=== PATIENT | male | born 1935 | race Two or more races ===

== ENCOUNTER 2017-06-17 14:19 | Inpatient (IN) | payer OTHER ==
--- NOTE | 2017-06-17 15:48 | EDPHY ---
H & P Time Seen by Provider: 06/17/17 15:33 HPI/ROS: CHIEF COMPLAINT: Diarrhea, weakness HISTORY OF PRESENT ILLNESS: The patient is an 81-year-old male with a history of progressive super nuclear palsy. The patient is a resident in assisted living. Some residence at the care facility developed diarrhea over the past week. He developed diarrhea on Monday and Monday. His diarrhea has resolved. However, the patient's daughter states that he has had increased weakness since Monday. Since the beginning of this week the patient has had 5 falls at night. Patient normally uses a walker but rarely if ever falls. His movement is complicated by his underlying condition. Patient denies any injury from the fall. He has no headache or neck pain. Patient has had a mild nonproductive cough for the past couple of weeks. Patient denies abdominal pain. The daughter also states that early in the week he had a episode of urinary incontinence. This is not typical. REVIEW OF SYSTEMS: My complete review of systems is negative except as mentioned in the HPI. Past Medical/Surgical History: Includes a progressive supranuclear palsy. The patient's daughter states that he has never been in the hospital. Past surgical history: Negative Social history: The patient lives in assisted living. Smoking Status: Never smoked Physical Exam: Is 94/69, 84, 20, 93% on room air, 37 GENERAL: No acute distress, alert. HEENT: Eyes normal to inspection, normal pharynx, no signs of dehydration. NECK: No thyromegaly, no lymphadenopathy, supple. No C-spine tenderness palpation RESPIRATORY: Clear to auscultation bilaterally, no rales, rhonchi or wheezing. CVS: Regular rate and rhythm, no rubs, murmurs, or gallops. ABDOMEN: Soft, nontender, nondistended, no organomegaly. BACK: Normal to inspection, no CVA tenderness. SKIN: Normal color, no rash, warm, dry. No pallor. EXTREMITIES: No pedal edema, no calf tenderness, no Homans sign or cords, no joint swelling. NEURO/PSYCH: Alert and oriented x3, normal mood and flat affect, normal motor sensory exam. Slightly slow movement. No obvious cranial nerve deficit. Constitutional: Initial Vital Signs Temperature (C) 37 C 06/17/17 14:53 Heart Rate 84 06/17/17 14:53 Respiratory Rate 20 06/17/17 14:53 Blood Pressure 94/69 L 06/17/17 14:53 O2 Sat (%) 93 06/17/17 14:53 O2 Delivery Mode Room Air Allergies/Adverse Reactions: No Known Allergies Allergy (Unverified 06/17/17 14:51) Home Medications: Medication Instructions Recorded Aspirin 06/17/17 Dutasteride 06/17/17 Losartan Potassium 06/17/17 Memantine HCl 06/17/17 Medical Decision Making - Diagnostics Imaging Results: Imaging Impressions Chest X-Ray 06/17/17 15:49 Impression: 1. No pneumonia. 2. Borderline cardiomegaly without pulmonary vascular plethora. 3. Minimal costophrenic gutter blunting, discussed above. Head CT 06/17/17 15:49 Impression: Elderly brain with atrophy and probable white matter small vessel disease. Negative for hemorrhage or other intracranial acute abnormality. Results called and discussed with Mackenzie Ayoub M.D. on June 17, 2017 at 1621 hours. ED Course/Re-evaluation: In the emergency department I discussed possible etiologies with the patient and his daughter. I answered all her questions. IV was placed. Laboratory studies were obtained. Due the patient's recent fall and head CT was ordered. Patient has had ongoing cough and a chest x-ray was ordered. EKG: Atrial fibrillation at 119. Normal axis. No ST or T-wave abnormalities. I reviewed the patient's laboratory studies. He had markedly low white count of 2. He was mildly anemic. Patient's platelets were low at 108. His chemistry panel was notable for mildly elevated creatinine 1.4. Troponin was negative. Head CT: Please refer the dictated report by Dr. Dubon. Atrophy. No acute disease noted. No subdural hematoma. Chest x-ray: Mild cardiomegaly. No acute disease. Patient's flu screen came back positive. I discussed the results with the patient and his daughter. I answered all her questions. We are awaiting urine studies. I discussed the case with Dr.Conor Kapoor who was on-call for the hospitalist service. He will admit the patient for further care. Differential Diagnosis: My differential includes but is not limited to pneumonia, bronchitis, influenza , electrolyte abnormality, sugar abnormality, subarachnoid hemorrhage, subdural hematoma, epidural hematoma, CVA, dehydration - Data Points Laboratory Results: Laboratory Results 06/17/17 15:39 06/17/17 15:39 06/17/17 06/17/17 06/17/17 16:53 15:39 15:39 WBC 2.95 10^3/uL L 10^3/uL (3.80-9.50) RBC 3.99 10^6/uL L 10^6/uL (4.40-6.38) Hgb 13.8 g/dL g/dL (13.7-17.5) Hct 37.5 % L % (40.0-51.0) MCV 94.0 fL fL (81.5-99.8) MCH 34.6 pg H pg (27.9-34.1) MCHC 36.8 g/dL H g/dL (32.4-36.7) RDW 13.5 % % (11.5-15.2) Plt Count 108 10^3/uL L 10^3/uL (150-400) MPV 9.1 fL fL (8.7-11.7) Neut % (Auto) Not Reported Lymph % (Auto) Not Reported [place] % (Auto) Not Reported Eos % (Auto) Not Reported Baso % (Auto) Not Reported Nucleat RBC Rel Count 0.0 % % (0.0-0.2) Absolute Neuts (auto) Not Reported Absolute Lymphs (auto) Not Reported Absolute Monos (auto) Not Reported Absolute Eos (auto) Not Reported Absolute Basos (auto) Not Reported Absolute Nucleated RBC 0.00 10^3/uL 10^3/uL (0-0.01) Immature Gran % Not Reported Seg Neutrophils % 44 % % Band Neutrophils % 3 % % Lymphocytes % 35 % % Monocytes % 17 % % Eosinophils % 1 % % Immature Gran # Not Reported Absolute Seg Neuts 1.30 10^/uL L 10^/uL (1.70-6.50) Absolute Band Neuts 0.09 10^3/uL 10^3/uL (0.00-0.70) Absolute Lymphocytes 1.03 10^3/uL 10^3/uL (1.00-3.00) Absolute Monocytes 0.50 10^3/uL 10^3/uL (0.30-0.80) Absolute Eosinophils 0.03 10^3/uL 10^3/uL (0.03-0.40) RBC/WBC/PLT Morphology NORMAL (NORMAL) Atypical Lymphocytes 1+ H Platelet Estimate DECREASED L (ADEQ) Sodium 139 mEq/L mEq/L (134-144) Potassium 4.1 mEq/L mEq/L (3.5-5.2) Chloride 104 mEq/L mEq/L (97-110) Carbon Dioxide 22 mEq/l mEq/l (22-31) Anion Gap 13 mEq/L mEq/L (8-16) BUN 35 mg/dL H mg/dL (7-23) Creatinine 1.4 mg/dL H mg/dL (0.7-1.3) Estimated GFR 49 Glucose 100 mg/dL mg/dL (70-100) Calcium 8.8 mg/dL mg/dL (8.5-10.4) Troponin I 0.018 ng/mL ng/mL (0.000-0.034) NT-Pro-B Natriuret Pep 387 pg/mL pg/mL (0-450) Nasal Influenza A PCR NEGATIVE FOR FLU A (NEGATIVE) Nasal Influenza B PCR FLU B DETECTED (NEGATIVE) Medications Given: Discontinued Medications Sodium Chloride (Ns) 500 mls @ 1,000 mls/hr IV EDNOW ONE PRN Reason: Protocol Stop: 06/17/17 16:18 Last Admin: 06/17/17 16:19 Dose: 500 mls Departure - Departure Disposition: [facility] In[facility] Acute Clinical Impression: Weakness, Influenza B, Thrombocytopenia Leukopenia Qualifiers: Leukopenia type: other Qualified Code(s): D72.818 - Other decreased white blood cell count Condition: Good
[2017-06-17] MEDS ORDERED: NS 500 ML IV ONE (15:49)
[2017-06-17 15:55] LABS: ADD MORPH? NO; FRAGMENT RBC FLAG 0 (0-99); HEMATOCRIT 37.5 % (40.0-51.0); HEMOGLOBIN 13.8 g/dL (13.7-17.5); LEFT SHIFT FLG 0 (0-99); LIPEMIA HEMOLYSIS FLAG 90 (0-99); MEAN CELL HEMOGLOBIN 34.6 pg (27.9-34.1); MEAN CELL HEMOGLOBIN CONCENTR. 36.8 g/dL (32.4-36.7); MEAN PLATELET VOLUME 9.1 fL (8.7-11.7); PLATELET CLUMPS FLAG 10 (0-99); PLATELET COUNT 108 10^3/uL (150-400); RED BLOOD CELL COUNT 3.99 10^6/uL (4.40-6.38); RED CELL DISTRIBUTION WIDTH 13.5 % (11.5-15.2)
[2017-06-17 16:04] LABS: ANION GAP 13 mEq/L (8-16); CALCIUM 8.8 mg/dL (8.5-10.4); CARBON DIOXIDE 22 mEq/l (22-31); CHLORIDE 104 mEq/L (97-110); CREATININE 1.4 mg/dL (0.7-1.3); GLOMERULAR FILTRATION RATE 49; GLUCOSE 100 mg/dL (70-100); POTASSIUM 4.1 mEq/L (3.5-5.2); SODIUM 139 mEq/L (134-144)
[2017-06-17 16:08] LABS: ADD DIFF? YES; ADD SCAN? NO; ATYPICAL LYMPHOCYTE FLAG 190 (0-99)
[2017-06-17 16:16] LABS: TROPONIN I 0.018 ng/mL (0.000-0.034)
--- NOTE | 2017-06-17 16:28 | CPEKG ---
Heart Rate: 119 RR Interval: 504 QRSD Interval: 92 QT Interval: 320 QTC Interval: 451 QRS [place]: -6 T Wave [place]: 66 EKG Severity - ABNORMAL ECG - EKG Impression: ATRIAL FIBRILLATION, V-RATE 63-169 EKG Impression: LOW VOLTAGE IN FRONTAL LEADS Electronically Signed By: Mackenzie Ayoub 17-Jun-2017 21:34:35
[2017-06-17 16:43] LABS: PLATELET ESTIMATE DECREASED (ADEQ)
[2017-06-17 18:04] LABS: BACTERIA TRACE /hpf (NONE SEEN); COLOR YELLOW; LEUKOCYTE ESTERASE,URINE NEGATIVE (NEGATIVE); MUCUS 4+ /lpf (NONE-1+); NITRITE,URINE NEGATIVE (NEGATIVE)
[2017-06-17] MEDS ORDERED: PROMETHAZINE HCL 25 MG/ML INJ IVP PRN (20:26)
[2017-06-17] MEDS ORDERED: IPRATROPIUM/ALBUTEROL 3 ML DEYVIAL IH PRN (20:36)
[2017-06-17] MEDS: OSELTAMIVIR PHOSPHATE 75 MG CAP PO SCH (21:15)
--- NOTE | 2017-06-17 21:24 | GHP ---
[f rep st] HISTORY AND PHYSICAL DATE OF ADMISSION: 06/17/2017 CHIEF COMPLAINT: Fatigue and progressive weakness. HISTORY OF PRESENT ILLNESS: The patient is a very pleasant 81-year-old gentleman with a past medical history of progressive supranuclear palsy and hypertension, who had been progressively getting weak over the past several days. He did have an associated cough noted as well, as well as some diarrhea earlier in the week. In the emergency room, His PCR flu testing was positive for influenza B. His w orkup was also notable for pancytopenia and creatinine elevation of 1.4. PAST MEDICAL HISTORY: 1. Progressive supranuclear palsy. 2. Hypertension. 3. BPH. PAST SURGICAL HISTORY: None. MEDICATIONS: His medication list is taken from his ambulatory order list. 1. Aspirin 81 mg daily. 2. Dutasteride 0.5 mg daily. 3. Cozaar 25 mg daily. 4. Namenda 10 mg twice a day. ALLERGIES: No known drug allergies. SOCIAL HISTORY: Patient currently lives in assisted living. He is a nonsmoker. He has 1 son. FAMILY HISTORY: Unknown. REVIEW OF SYSTEMS: CONSTITUTIONAL: Positive for subjective fever and chills. ENT: Positive for re cent cough. CARDIOVASCULAR: No complaints of chest pains, palpitations, or syncopal episodes. RESP IRATORY: No subjective shortness of breath, but cough noted. GI: No nausea or vomiting. No focal abdominal pain, but diarrhea has been noted over the past week, which has been nonbloody. : No re port of any difficulty with urination. NEUROLOGIC: No complaints of any headaches or focal weakness . HEMATOLOGIC: No history of any deep vein thrombosis or pulmonary embolisms. PSYCHIATRIC: No his tory of anxiety or depression. ENDOCRINE: No history of diabetes. SKIN: No new skin rashes. MUSC ULOSKELETAL: No focal joint pains. PHYSICAL EXAM: VITAL SIGNS: Temperature is 37.0, blood pressure is 94/69, heart rate 84, respiratio ns 20, saturating 93% on room air. GENERAL: Patient resting comfortably in bed, awake and alert, co nversant, no acute distress. HEENT: Extraocular movements intact. No scleral icterus. Mucous memb ranes dry. NECK: No adenopathy. Normal thyroid without any enlargement appreciated. CHEST: Clear on auscultation with normal respiratory effort. HEART: Regular. No murmurs appreciated. ABDOMEN: Soft, nontender, nondistended. Normal bowel sounds. : No Vanessa catheter in place. EXTREMITIES : No significant pitting edema. NEUROLOGIC: Patient has stuttering to his speech at times, but oth erwise no focal weakness is appreciated. LABS: White blood cell count 2.9, hemoglobin 13, platelets 108. Sodium 139, potassium 4.1, chloride 104, bicarb 22, BUN 35, creatinine 1.4, glucose of 100. Flu PCR positive for influenza B. BNP 387. Troponin 0.018. Urinalysis showed negative nitrite, negative leukocyte esterase. IMAGIN. CT head negative. 2. Chest x-ray: No pneumonia or infiltrate seen. ASSESSMENT/PLAN: 1. Influenza infection likely accounts for his progressive weakness over the prior week. He is cert ainly outside 48 hours of when his symptoms did start, but I will go ahead and prescribe Tamiflu for now. We will schedule nebulizers, monitor for any worsening cough. Given that his chest x-ray is ne gative, I will hold off on antibacterial therapy at this point in time. 2. Pancytopenia. This could be a consequence of his viral infection. I cannot find any old reading s as a comparison, so this may need to have some outpatient followup after discharge to ensure resolu tion. 3. Acute kidney injury, likely a component of the diarrhea and influenza. I will administer IV flui ds overnight and recheck in the morning. 4. Progressive supranuclear palsy. PT and OT consults. 5. Hypertension. I will hold his losartan for now. 6. Benign prostatic hypertrophy. We will continue Avodart. 7. Bowel and bladder. Consider bowel regimen if constipation develops. 8. Deep venous thrombosis prophylaxis: Lovenox. 9. Disposition: I anticipate he will be here for over 2 midnights, probably 3-5 days. /[id number]/MODL
--- NOTE | 2017-06-18 01:48 | PDMN ---
Medical Necessity Medical necessity: C/M review: est. > 2 MN LOS for eval and TX of acute and persistent - influenza B, pancytopenia, progressive generalized weakness, acute kidney injury requiring ongoing IV fluids, Duonebs, oral Tamiflu, pulse oximetry , acute inpt PT/OT, comorbid progressive suprenuclear palsy, hypertension, benign prostatic hypertrophy per H/P.
[2017-06-18] MEDS: NS 1,000 ML IV SCH ×3 (04:05→23:39)
[2017-06-18 05:06] LABS: % IMMATURE GRANULYOCYTES 0.4 % (0.0-1.1); ABSOLUTE IMMATURE GRANULOCYTES 0.01 10^3/uL (0.00-0.10); ADD DIFF? NO; ADD MORPH? NO; ADD SCAN? YES; FRAGMENT RBC FLAG 0 (0-99); HEMATOCRIT 35.4 % (40.0-51.0); HEMOGLOBIN 12.7 g/dL (13.7-17.5); LEFT SHIFT FLG 10 (0-99); LIPEMIA HEMOLYSIS FLAG 90 (0-99); MEAN CELL HEMOGLOBIN 34.1 pg (27.9-34.1); MEAN CELL HEMOGLOBIN CONCENTR. 35.9 g/dL (32.4-36.7); MEAN CELL VOLUME 95.2 fL (81.5-99.8); MEAN PLATELET VOLUME 9.2 fL (8.7-11.7); PLATELET CLUMPS FLAG 0 (0-99); PLATELET COUNT 97 10^3/uL (150-400); RED BLOOD CELL COUNT 3.72 10^6/uL (4.40-6.38); RED CELL DISTRIBUTION WIDTH 13.6 % (11.5-15.2)
[2017-06-18 05:11] LABS: ATYPICAL LYMPHOCYTE FLAG 220 (0-99)
[2017-06-18 05:12] LABS: ALANINE AMINOTRANSFERASE 48 IU/L (21-72); ALKALINE PHOSPHATASE 57 IU/L (38-126); ANION GAP 11 mEq/L (8-16); ASPARTATE AMINOTRANSFERASE 58 IU/L (17-59); BILIRUBIN,TOTAL 1.1 mg/dL (0.1-1.4); CALCIUM 7.9 mg/dL (8.5-10.4); CARBON DIOXIDE 23 mEq/l (22-31); CHLORIDE 105 mEq/L (97-110); CREATININE 1.2 mg/dL (0.7-1.3); GLOMERULAR FILTRATION RATE 58; GLUCOSE 94 mg/dL (70-100); POTASSIUM 3.7 mEq/L (3.5-5.2); SODIUM 139 mEq/L (134-144); TOTAL PROTEIN 5.7 g/dL (6.3-8.2)
[2017-06-18 05:32] LABS: SCAN NEGATIVE
[2017-06-18] MEDS ORDERED: FLU VACC QS 2017-18 (3YR+)/PF 0.5 ML SYR (FLUARIX QUAD) IM ONE (07:22)
[2017-06-18] MEDS ORDERED: NON-FORMULARY NEW DRUG (Memantine Hcl [Namenda 10 Mg] 10 MG) PO SCH (09:00)
[2017-06-18] MEDS: ASPIRIN 81 MG CHEWABLE TAB PO SCH (09:04)
[2017-06-18] MEDS: CHOLECALCIFEROL VIT D3 1,000 UNITS TAB PO SCH (09:04)
[2017-06-18] MEDS: MEMANTINE HCL 5 MG TAB PO SCH ×2 (09:05→21:43)
[2017-06-18] MEDS: DUTASTERIDE 0.5 MG CAP PO SCH (09:16)
[2017-06-18] MEDS: ENOXAPARIN 40 MG/0.4 ML SYR SC SCH (09:23)
[2017-06-18] MEDS: OSELTAMIVIR PHOSPHATE 75 MG CAP PO SCH (09:24)
--- NOTE | 2017-06-18 11:56 | HOSPPROG ---
Hospitalist Progress Note Assessment/Plan: Patient is an 81-year-old male with a past medical history of progressive supranuclear palsy and hypertension. He has been becoming progressively weak. This noted that he had influenza B. Today is my 1st encounter with the patient. Chart reviewed. * influenza B -Tamiflu and supportive care -likely the etiology of his progressive weakness but also has underlying progressive supranuclear palsy -reviewed his chest x-ray and it does not note any type of pneumonia * pancytopenia * acute kidney injury -better w hydration * hypertension -currently hypotensive due to acute illness -bp meds being held -fluid bolus now * BPH -on Avodart -has some hematuria *Progressive supranuclear palsy -PT and OT seeing him *Plan: if bp stabilizes, he will likely be dc in the next 1-2 days Subjective: Saud has no complaints, wanting lunch. Objective: Vital Signs Temp Pulse Resp BP Pulse Ox 36.8 C 76 16 97/61 L 94 06/18/17 07:42 06/18/17 07:42 06/18/17 07:42 06/18/17 07:42 06/18/17 07:42 Laboratory Results 06/18/17 04:36 06/18/17 04:36 06/17/17 06/18/17 06/19/17 05:59 05:59 05:59 Intake Total 250 Balance 250 - Physical Exam Constitutional: no apparent distress, appears nourished Eyes: PERRL Ears, Nose, Mouth, Throat: hard of hearing Cardiovascular: regular rate and rhythym Respiratory: no respiratory distress Gastrointestinal: normoactive bowel sounds Skin: warm Musculoskeletal: generalized weakness Psychiatric: interacting appropriately, not anxious, not encephalopathic ICD10 Worksheet Patient Problems: Problems Problem Status Onset Influenza B Acute Leukopenia Acute Thrombocytopenia Acute Weakness Acute
[2017-06-18] MEDS: NS 250 ML IV ONE ×2 (12:05→12:40)
--- NOTE | 2017-06-18 14:00 | ASMTCASEMG ---
Living Arrangements What is your living Answers: With Child(wanda) arrangement? Who do you live with? Type Of Residence What kind of residence do Answers: House you live in? Discharge Plan Comments Coordination Status Comments Notes: Patient is an 81yo male who was admitted for influenza and leukopenia. It is anticipated he will be here 3-5 days. OT has been ordered. Patient lives in [facility]. D/C needs TBD. CM will follow. Date Signed: 06/18/2017 02:00 PM Electronically Signed By:Kayla Gottlieb LCSW
[2017-06-18] MEDS: ACETAMINOPHEN 325 MG TAB PO PRN (21:43)
[2017-06-18] MEDS: OSELTAMIVIR 6 MG/ML UDSYR PO SCH (21:43)
[2017-06-19 05:17] LABS: ADD MORPH? NO; ADD SCAN? YES; FRAGMENT RBC FLAG 0 (0-99); HEMATOCRIT 35.5 % (40.0-51.0); HEMOGLOBIN 12.8 g/dL (13.7-17.5); LEFT SHIFT FLG 0 (0-99); LIPEMIA HEMOLYSIS FLAG 90 (0-99); MEAN CELL HEMOGLOBIN 34.1 pg (27.9-34.1); MEAN CELL HEMOGLOBIN CONCENTR. 36.1 g/dL (32.4-36.7); MEAN CELL VOLUME 94.7 fL (81.5-99.8); MEAN PLATELET VOLUME 9.1 fL (8.7-11.7); PLATELET CLUMPS FLAG 0 (0-99); PLATELET COUNT 86 10^3/uL (150-400); RED BLOOD CELL COUNT 3.75 10^6/uL (4.40-6.38); RED CELL DISTRIBUTION WIDTH 13.5 % (11.5-15.2)
[2017-06-19 05:27] LABS: ATYPICAL LYMPHOCYTE FLAG 300 (0-99)
[2017-06-19 05:31] LABS: ALANINE AMINOTRANSFERASE 45 IU/L (21-72); ALBUMIN 2.7 g/dL (3.5-5.0); ALKALINE PHOSPHATASE 54 IU/L (38-126); ANION GAP 9 mEq/L (8-16); ASPARTATE AMINOTRANSFERASE 47 IU/L (17-59); BILIRUBIN,TOTAL 0.9 mg/dL (0.1-1.4); CALCIUM 7.8 mg/dL (8.5-10.4); CARBON DIOXIDE 23 mEq/l (22-31); CHLORIDE 110 mEq/L (97-110); CREATININE 1.1 mg/dL (0.7-1.3); GLOMERULAR FILTRATION RATE > 60; GLUCOSE 89 mg/dL (70-100); MAGNESIUM 2.2 mg/dL (1.6-2.3); POTASSIUM 3.7 mEq/L (3.5-5.2); SODIUM 142 mEq/L (134-144); TOTAL PROTEIN 5.4 g/dL (6.3-8.2)
[2017-06-19 06:02] LABS: ADD DIFF? YES; SCAN POSITIVE
[2017-06-19 06:11] LABS: PLATELET ESTIMATE DECREASED (ADEQ)
[2017-06-19] MEDS: ENOXAPARIN 40 MG/0.4 ML SYR SC SCH (08:57)
[2017-06-19] MEDS: CHOLECALCIFEROL VIT D3 1,000 UNITS TAB PO SCH (08:58)
[2017-06-19] MEDS: MEMANTINE HCL 5 MG TAB PO SCH ×2 (08:58→21:16)
[2017-06-19] MEDS: ASPIRIN 81 MG CHEWABLE TAB PO SCH (08:58)
[2017-06-19] MEDS: DUTASTERIDE 0.5 MG CAP PO SCH (08:58)
[2017-06-19] MEDS: OSELTAMIVIR 6 MG/ML UDSYR PO SCH ×2 (08:59→21:16)
[2017-06-19] MEDS: ACETAMINOPHEN 325 MG TAB PO PRN ×2 (12:01→17:49)
--- NOTE | 2017-06-19 15:15 | HOSPPROG ---
Hospitalist Progress Note Assessment/Plan: 81-year-old male with a past medical history of progressive supranuclear palsy and hypertension presents with progressive weakness. Also had D [employer] which has since resolved. Noted to have influenza B. Today is my 1st encounter with the patient. Chart reviewed. * influenza B -Tamiflu and supportive care -likely the etiology of his progressive weakness but also has underlying progressive supranuclear palsy -reviewed his chest x-ray and it does not note any type of pneumonia * pancytopenia * acute kidney injury -better w hydration to 1.2 * hypertension -currently normotensive but has been hypotensive likely due to acute illness -bp meds being held * BPH -on Avodart -has some hematuria *Progressive supranuclear palsy -OT recommending SNF rehab due to mod-max assistance needed with ADLS 2/2 weakness *Plan:Discussed with CM. They are evaluating him for placement now. Subjective: Reports weakness better. No cough or F. Objective: Vital Signs Temp Pulse Resp BP Pulse Ox 98.1 F 86 18 119/78 93 06/19/17 11:28 06/19/17 11:28 06/19/17 11:28 06/19/17 11:28 06/19/17 11:28 Laboratory Results 06/19/17 04:57 06/19/17 04:57 06/18/17 06/19/17 06/20/17 05:59 05:59 05:59 Intake Total 2465 700 Output Total 1 Balance 2465 699 - Physical Exam Constitutional: no apparent distress Eyes: PERRL Ears, Nose, Mouth, Throat: hearing normal Cardiovascular: regular rate and rhythym, no murmur, rub, or gallop Respiratory: no respiratory distress Psychiatric: not anxious ICD10 Worksheet Patient Problems: Problems Problem Status Onset Weakness Acute Influenza B Acute Thrombocytopenia Acute Leukopenia Acute
--- NOTE | 2017-06-19 15:34 | ASMTCMCOM ---
CM Note CM Note Notes: Pt in from Radha PAYNE OT rec SNF and pt agreeable. Pt request CM speak w [facility] Radha ([phone]) about SNF, she requests referrals to [facility], [facility], [facility] and [facility]. CM to follow. Date Signed: 06/19/2017 03:34 PM Electronically Signed By:ESEQUIEL Javed
[2017-06-20 04:46] LABS: ADD MORPH? NO; FRAGMENT RBC FLAG 0 (0-99); HEMATOCRIT 36.2 % (40.0-51.0); HEMOGLOBIN 13.3 g/dL (13.7-17.5); LEFT SHIFT FLG 0 (0-99); LIPEMIA HEMOLYSIS FLAG 90 (0-99); MEAN CELL HEMOGLOBIN 34.2 pg (27.9-34.1); MEAN CELL HEMOGLOBIN CONCENTR. 36.7 g/dL (32.4-36.7); MEAN CELL VOLUME 93.1 fL (81.5-99.8); MEAN PLATELET VOLUME 9.2 fL (8.7-11.7); PLATELET CLUMPS FLAG 10 (0-99); PLATELET COUNT 91 10^3/uL (150-400); RED BLOOD CELL COUNT 3.89 10^6/uL (4.40-6.38); RED CELL DISTRIBUTION WIDTH 13.5 % (11.5-15.2)
[2017-06-20 04:56] LABS: ATYPICAL LYMPHOCYTE FLAG 300 (0-99)
[2017-06-20 04:57] LABS: ADD DIFF? YES; ADD SCAN? NO
[2017-06-20 05:01] LABS: ALANINE AMINOTRANSFERASE 45 IU/L (21-72); ALBUMIN 2.9 g/dL (3.5-5.0); ALKALINE PHOSPHATASE 58 IU/L (38-126); ANION GAP 11 mEq/L (8-16); ASPARTATE AMINOTRANSFERASE 41 IU/L (17-59); BILIRUBIN,TOTAL 0.8 mg/dL (0.1-1.4); CALCIUM 7.9 mg/dL (8.5-10.4); CARBON DIOXIDE 20 mEq/l (22-31); CHLORIDE 114 mEq/L (97-110); CREATININE 1.1 mg/dL (0.7-1.3); GLOMERULAR FILTRATION RATE > 60; GLUCOSE 92 mg/dL (70-100); MAGNESIUM 2.2 mg/dL (1.6-2.3); POTASSIUM 3.7 mEq/L (3.5-5.2); SODIUM 145 mEq/L (134-144); TOTAL PROTEIN 5.3 g/dL (6.3-8.2)
[2017-06-20 05:58] LABS: PLATELET ESTIMATE DECREASED (ADEQ)
[2017-06-20 07:18] VITALS: BP 133/90; PULSE 54; RESP 12; TEMP 97.5; O2SAT 92
[2017-06-20] MEDS: OSELTAMIVIR 6 MG/ML UDSYR PO SCH (08:17)
[2017-06-20] MEDS: DUTASTERIDE 0.5 MG CAP PO SCH (08:17)
[2017-06-20] MEDS: MEMANTINE HCL 5 MG TAB PO SCH (08:17)
[2017-06-20] MEDS: ASPIRIN 81 MG CHEWABLE TAB PO SCH (08:17)
[2017-06-20] MEDS: CHOLECALCIFEROL VIT D3 1,000 UNITS TAB PO SCH (08:17)
[2017-06-20] MEDS: ENOXAPARIN 40 MG/0.4 ML SYR SC SCH (08:17)
--- NOTE | 2017-06-20 11:54 | PDIAF ---
- Diagnosis Diagnosis: flu a Code Status: Full Code - Medication Management Discharge Medications: Medications to Continue on Transfer Aspirin [Aspirin 81mg (*)] 81 mg PO DAILY 06/17/17 [Last Taken Unknown] Cholecalciferol Vit D3 [Vitamin D3 (*)] 1,000 units PO DAILY 06/17/17 [Last Taken Unknown] Dutasteride [Avodart 0.5 MG (*)] 0.5 mg PO DAILY 06/17/17 [Last Taken Unknown] Memantine HCl [Namenda 10 mg] 10 mg PO BID 06/17/17 [Last Taken Unknown] Acetaminophen [Tylenol 325mg (*)] 650 mg PO Q4HRS PRN tab 06/20/17 [Last Taken Unknown] Oseltamivir Phosphate [Tamiflu Oral Suspension] 30 mg PO BID ml 06/20/17 [Last Taken Unknown] Discharge Medications: Refer to the Discharge Home Medication list for PRN reason. PICC Care - Routine: N/A - Orders Services needed: Registered Nurse, Physical Therapy, Occupational Therapy Isolation Type: Droplet Isolation Diet Recommendation: no restrictions on diet - Labs/Radiology BMP Date: 06/23/17 Imaging Orders: EKG - Follow Up Care Current Providers and Referrals: JANNA,YANELI [Other] - As per Instructions
--- NOTE | 2017-06-20 12:25 | PDIAF ---
- Diagnosis Diagnosis: flu a Code Status: Full Code - Medication Management Discharge Medications: Medications to Continue on Transfer Aspirin [Aspirin 81mg (*)] 81 mg PO DAILY 06/17/17 [Last Taken Unknown] Cholecalciferol Vit D3 [Vitamin D3 (*)] 1,000 units PO DAILY 06/17/17 [Last Taken Unknown] Dutasteride [Avodart 0.5 MG (*)] 0.5 mg PO DAILY 06/17/17 [Last Taken Unknown] Memantine HCl [Namenda 10 mg] 10 mg PO BID 06/17/17 [Last Taken Unknown] Acetaminophen [Tylenol 325mg (*)] 650 mg PO Q4HRS PRN tab 06/20/17 [Last Taken Unknown] Oseltamivir Phosphate [Tamiflu Oral Suspension] 30 mg PO BID ml 06/20/17 [Last Taken Unknown] Discharge Medications: Refer to the Discharge Home Medication list for PRN reason. PICC Care - Routine: N/A - Orders Services needed: Registered Nurse, Physical Therapy, Occupational Therapy Isolation Type: Droplet Isolation Diet Recommendation: no restrictions on diet - Labs/Radiology BMP Date: 06/23/17 Imaging Orders: EKG 06/23/17 - Follow Up Care Current Providers and Referrals: JANNA,UNKNOWN [Other] - As per Instructions
--- NOTE | 2017-06-20 13:34 | GDS ---
[f rep st] DISCHARGE SUMMARY DISCHARGE DIAGNOSES: 1. Influenza B. 2. Atrial fibrillation. 3. History of hypertension. 4. Pancytopenia. 5. Acute kidney injury. 6. Benign prostatic hypertrophy. 7. Progressive supranuclear palsy. STUDIES AND PROCEDURES: CT of the head. PHYSICAL EXAM: GENERAL: The patient is alert. VITAL SIGNS: Afebrile at 36.4 , pulse is 54, respiratory rate 12, blood pressure is 133/90, he is saturating 92% on room air. I have seen and evaluated the patient on the day of discharge. HOSPITAL COURSE: The patient is an 81-year-old male brought to the hospital with progressive weakness. He was evaluated and diagnosed with: 1. Influenza B. During this hospitalization he was initiated on supportive care as well as Tamiflu. His symptoms are significantly improving. He was placed on droplet precautions. He has no signs of pneumonia or respiratory complication at this time and will continue on Tamiflu at the time of disposition. 2. Atrial fibrillation. The patient states that he has history of atrial fibrillation, however, his daughter is unclear about this. He is rate controlled without medication support. He will continue in the outpatient setting with his primary care physician for further management and recommendations regarding his atrial fibrillation. Repeat EKG has been ordered for 06/23/2017 for further assessment. 3. Pancytopenia. This is improved. The patient's pancytopenia continues and will be evaluated by his primary care physician in the outpatient setting. 4. Acute kidney injury. The patient was dehydrated at the time of admission. His kidney function has improved slightly with hydration and appears to be stable. 5. Hypertension. The patient states that he has had history of hypertension in the past. He was hypotensive at the time of admission. His blood pressure medications have been discontinued during this hospitalization. He has not received his Cozaar for several days. I will not reinitiate this medication. I have discussed this with his daughter Radha who is in agreement with this plan. He will follow up with his primary care physician. If his blood pressure should increase Cozaar 25 mg can be initiated for the patient. 6. History of benign prostatic hypertrophy. His Avodart has been continued. 7. Progressive supranuclear palsy. The patient will go to halfway facility for further rehabilitation and management. DISPOSITION: The patient will be discharged to [facility] for further rehabilitation and strengthening. There are no pending studies. DISCHARGE MEDICATIONS: Please refer to EMR form. I have discontinued the patient's previously prescribed Cozaar. New medications include Tamiflu. FOLLOWUP: Followup will be with Dr. SALDIVAR, his primary care provider. He will also be seen at [facility]. I spent greater than 35 minutes in the care, coordination, and management of the patient's disposition. /[id number]/MODL MTDD
--- NOTE | 2017-06-20 15:03 | ASDISCHSUM ---
Discharge Information Plan Status:SNF Medically Cleared to Leave: Discharge Date:06/20/2017 01:17 PM CM D/C Disposition:Snf Facility ADT D/C Disposition:Snf Facility Projected Discharge Date:06/20/2017 11:00 AM Transportation at D/C:Wheelchair Van Discharge Delay Reason: Follow-Up Date:06/20/2017 11:00 AM Discharge Slot: Final Diagnosis: Placement Information Referral Type:*Detention/SNF Referral ID:[id number] Provider Name:[facility] Address 1:[address] Address 2: City:[place] Selection Factors: State:[place] Patient Contact Information Contact Name:JAMISON Relationship:Daughter Address:[address] Work Phone: [facility]:ARJAY Alternate Phone: State/Zip Code:[place] [address] Email: Financial Information Financial Class: Primary Plan Desc:MEDICARE INPATIENT Primary Plan Number:[id number] Secondary Plan Desc:[facility] Secondary Plan Number:[id number] Assessment Information [facility] Initial CM Assessment Living Arrangements What is your living Answers: With Child(wanda) arrangement? Who do you live with? Type Of Residence What kind of residence do Answers: House you live in? Discharge Plan Comments Coordination Status Comments Notes: Patient is an 81yo male who was admitted for influenza and leukopenia. It is anticipated he will be here 3-5 days. OT has been ordered. Patient lives in [facility]. D/C needs TBD. CM will follow. Date Signed: 06/18/2017 02:00 PM Electronically Signed By:Kayla Gottlieb LCSW [facility] CM Progress Note CM Note CM Note Notes: Pt in from Radha GUZMAN. OT rec SNF and pt agreeable. [facility] ([phone][facility] about SNF, she requests referrals to [facility], [facility], [facility] and [id number]. CM to follow. Date Signed: 06/19/2017 03:34 PM Electronically Signed By:ESEQUIEL Javed [facility] CM Progress Note CM Note CM Note Notes: Pt medically stable for d[facility] to [facility]. [facility]. Orders sent in [email or web address]. Date Signed: 06/20/2017 03:03 PM Electronically Signed By:ESEQUIEL Javed Intervention Information
--- NOTE | 2017-06-20 15:03 | ASMTCMCOM ---
CM Note CM Note Notes: Pt medically stable for d/c to [facility]. [facility] updated. [facility] set up 13:00 transport. Orders sent in [email or web address]. Date Signed: 06/20/2017 03:03 PM Electronically Signed By:ESEQUIEL Javed
== END 2017-06-20 13:17 | DRG 866 ==
LOC: F3N 18:34 → OBSVTOIN 20:26
PROVIDERS: ADMIT Internal Medicine; ATTEND Internal Medicine
DX: J10.89 Influenza due to other identified influenza virus with other manifestations (principal); D61.818 Other pancytopenia; N17.9 Acute kidney failure, unspecified; G23.1 Progressive supranuclear ophthalmoplegia [Steele-Richardson-Olszewski]; I48.91 Unspecified atrial fibrillation; I10 Essential (primary) hypertension; N40.0 Benign prostatic hyperplasia without lower urinary tract symptoms; Z23 Encounter for immunization
CPT/HCPCS: 97165-GO; G0008; G8987-GO-CK; G8988-GO-CH; J1650

== ENCOUNTER → 2018-07-19 | Outpatient (CLI) | payer OTHER | LOC: FIMAGING 10:47 | PROVIDERS: ATTEND Internal Medicine | DX: R13.10 Dysphagia, unspecified (principal); G23.1 Progressive supranuclear ophthalmoplegia [Steele-Richardson-Olszewski]; Y84.4 Aspiration of fluid as the cause of abnormal reaction of the patient, or of later complication, without mention of misadventure at the time of the procedure | CPT/HCPCS: 92611-GN ==

== ENCOUNTER → 2018-11-28 | Outpatient (CLI) | payer OTHER | LOC: FIMAGING 10:48 ==